=== PATIENT | female | born 1950 | race Caucasian/White ===

== ENCOUNTER 2022-04-02 08:39 | Outpatient (CLI) | payer MEDICARE, OTHER ==
[2022-04-02] MEDS ORDERED: Iopamidol 300 61% 100 ML VIAL FS ONE (14:37)
== END 2022-04-02 08:40 | disposition home or self-care (01) ==
LOC: CSHCT 08:39
PROVIDERS: ATTEND Internal Medicine
DX: N28.89 Other specified disorders of kidney and ureter (principal); N28.1 Cyst of kidney, acquired
CPT/HCPCS: 74178; Q9967

== ENCOUNTER 2023-06-27 09:34 | Outpatient (CLI) | payer MEDICARE, OTHER | END 2023-06-27 09:35 | disposition home or self-care (01) | LOC: CSHMAMMO 09:34 | PROVIDERS: ATTEND Internal Medicine | DX: Z12.31 Encounter for screening mammogram for malignant neoplasm of breast (principal) | CPT/HCPCS: 77063; 77067 ==